=== PATIENT | female | born 1985 | race Caucasian/White ===

== ENCOUNTER → 2020-09-27 08:18 | Outpatient (CLI) | payer OTHER, SELFPAY ==
--- NOTE | ~2020-09-27 | MMUS_ITS ---
EXAMINATION: MM diagnostic preston BI w josi, US breast BI limited HISTORY: Follow-up breast asymmetries TECHNIQUE: Additional 3-D tomosynthesis images of the breasts were performed and synthetic 2-D images were generated. CAD analysis was submitted and interpreted. High resolution bilateral limited breast ultrasound was performed. COMPARISON: None BREAST PARENCHYMAL COMPOSITION: The breasts are heterogenously dense, which may obscure small masses. FINDINGS: MAMMOGRAPHIC FINDINGS: There is focal asymmetry laterally in the right breast on CC view. There are benign breast calcificat ions bilaterally. There are no suspicious masses or architectural distortion in the left breast. ULTRASOUND: Limited right breast ultrasound: There are multiple cysts in the right breast including a 1.2 cm cyst at 9:00 near the areola. At 10:00, 12 cm from the nipple there is a oval circumscribed hypoechoic ma ss with internal echoes measuring 9 x 9 x 6 mm with posterior acoustic enhancement. Parallel orientat ion. No internal vascularity. Limited left breast ultrasound: The areola there is a 6 mm cyst. No suspicious masses to suggest malignancy. No abnormality identifie d in the area of palpable concern. IMPRESSION: 1. Probable benign complicated cyst of the right breast at 10:00, 12 cm from the nipple measuring 9 m m. 2. Recommend 6 month follow-up right breast ultrasound. BI-RADS category 3, probably benign findings. Reviewed, dictated and finalized at location A. SPECIALIST IMPRESSION: 1. Probable benign complicated cyst of the right breast at 10:00, 12 cm from th e nipple measuring 9 mm. 2. Recommend 6 month follow-up right breast ultrasound. BI-RADS category 3, probably benign findings.
== END ==
PROVIDERS: Visit Provider Obstetrics & Gynecology
DX: N63.20 Unspecified lump in the left breast, unspecified quadrant (principal)
CPT/HCPCS: 76642; 77062; 77066; G0279

== ENCOUNTER → 2021-06-15 09:28 | Outpatient (CLI) | payer OTHER, SELFPAY ==
--- NOTE | ~2021-06-15 | US_ITS ---
US breast RT limited 06/15/2021 10:04 Indication: Follow-up right breast masses Procedure: High-resolution Limited ultrasound of the right breast Comparison: 09/27/2020 Findings: There are multiple simple cysts of the right breast as 9 and 10:00. No suspicious masses to suggest malignancy. Impression: 1: No sonographic evidence for malignancy in the right breast. Benign cysts. Routine yearly screening mammogram and regular clinical breast examination are recommended. BI-RADS CATEGORY 2 - BENIGN FINDINGS Reviewed, dictated and finalized at location A. Impression: 1: No sonographic evidence for malignancy in the right breast. Benign cysts. Routine yearly screening mammogram and regular clinical breast examination are recommended. BI-RADS CATEGORY 2 - BENIGN FINDINGS
== END ==
PROVIDERS: PCP Family Medicine; Visit Provider Obstetrics & Gynecology
DX: R92.8 Other abnormal and inconclusive findings on diagnostic imaging of breast (principal)
CPT/HCPCS: 76642

== ENCOUNTER → 2021-10-12 12:48 | Outpatient (CLI) | payer OTHER, SELFPAY ==
--- NOTE | ~2021-10-12 | XR_ITS ---
EXAMINATION: XR ankle LT min 3V DATE: 10/12/2021 13:17 INDICATION: Left ankle pain. Injury. TECHNIQUE: 4 views of left ankle were obtained. COMPARISON: None. FINDINGS: Bone alignment is normal. No fracture. Joint spaces are well maintained. There are enthesop hytes at the posterior and plantar aspects of calcaneal tuberosity. Ankle soft tissue swelling is not ed, left worse than right. IMPRESSION: 1. No fracture. Reviewed, dictated and finalized at location A. TESTING IMPRESSION: 1. No fracture.
== END ==
PROVIDERS: PCP Family Medicine; Visit Provider Physician Assistant
DX: M25.572 Pain in left ankle and joints of left foot (principal); M79.89 Other specified soft tissue disorders
CPT/HCPCS: 73610

== ENCOUNTER 2023-05-09 08:04 | Emergency (ER) | payer OTHER, SELFPAY ==
--- NOTE | 2023-05-09 08:10 | ED.URI ---
HPI - URI/Sore Throat General Chief Complaint: Upper Respiratory Infection Stated Complaint: sore throat; chills Time Seen by Provider: 05/09/23 08:11 Source: patient and RN notes reviewed History of Present Illness HPI Narrative: Patient is a 38-year-old female presents to urgent care with complaints of chills and sore throat. Patient states that it started a couple days ago. Denies any ill exposures. Denies any other upper respiratory complaints. Patient denies fever, nausea or vomiting. States that she has been taking Advil. No other acute complaints. No acute distress noted. Patient aware of the plan of care. Some parts of this dictation were generated by voice recognition software and may contain typographical and/or grammatical inaccuracies. Related Data Home Medications Medication Instructions Recorded Confirmed levonorgestrel 21 mcg/24 hours (8 1 device intrauterine ONCE 11/17/22 11/17/22 yrs) 52 mg intrauterine device (Mirena) Allergies Allergy/AdvReac Type Severity Reaction Status Date / Time No Known Allergies Allergy Mild Verified 05/09/23 08:21 Review of Systems Review of Systems: CONSTITUTIONAL: Reports of chills EYES: Denies visual changes, redness, or discharge. ENT: Denies rhinorrhea, congestion, otalgia. Reports of sore throat CARDIOVASCULAR: Denies chest pain, palpitations, or edema. RESPIRATORY: Denies cough or dyspnea. GASTROINTESTINAL: Denies abdominal pain, nausea, vomiting, or diarrhea. GENITOURINARY: Denies dysuria or hematuria. SKIN: Denies rash or itching. MUSCULOSKELETAL: Denies back pain, joint pain, or myalgia. NEUROLOGIC: Denies headache, numbness, or weakness. All other systems reviewed are negative, except as documented in HPI. [facility] Social History Social History Smoking status: Never smoker Alcohol intake: current Drinks per week: 6 Substance use: never Lack of Transportation: No Lack of Food: Never True Current Housing: I Have Housing Concerned About Future Housing: No Difficulty Paying Gas/Electric Bills: No Difficulty Paying for Meds: No Currently Unemployed: No Education: Associate Degree Difficulty w/ Childcare or Family Care: No Comments At the time of my signature, I reviewed and agree with the nursing past medical, surgical, social, and family history. There is no relevant family history pertinent to the patient complaint. Exam Narrative: GENERAL: This is a well-nourished, well-developed patient, in no apparent distress. HEAD: normocephalic, atraumatic. EYES: PERRL. Sclera clear/white. Vision is grossly intact. EARS: External ears normal, auditory canals clear and without drainage, TMs normal without perforation. Hearing grossly intact. NOSE: External nose normal with no obvious nasal discharge, nares without redness, no rhinorrhea. THROAT: Mucous membranes moist, mild postnasal drainage NECK: Neck supple, non-tender without lymphadenopathy CARDIOVASCULAR: Regular rate and rhythm RESPIRATORY: Clear to auscultation. Breath sounds equal bilaterally. No wheezes, rales, or rhonchi. SKIN: warm, intact with no suspicious lesions or rash, good texture and turgor. NEURO: awake, alert, and oriented to person, place and time. There were no obvious focal neurologic abnormalities. EXTREMITIES: No clubbing, cyanosis, or edema. Course Course Level of Care: Express Care Visit Vital Signs Vital signs: Vital Signs Temperature 99.1 F 05/09/23 08:17 Pulse Rate 103 H 05/09/23 08:17 Respiratory Rate 16 05/09/23 08:17 Blood Pressure 124/78 05/09/23 08:17 Pulse Oximetry 97 05/09/23 08:17 Temperature 99.1 F 05/09/23 08:17 Pulse Rate 103 H 05/09/23 08:17 Respiratory Rate 16 05/09/23 08:17 Blood Pressure 124/78 05/09/23 08:17 Pulse Oximetry 97 05/09/23 08:17 Reviewed MDM - URI/Sore Throat MDM Narrative Medical decision making narrative:
[2023-05-09 08:17] VITALS: BP 124/78; PULSE 103; RESP 16; TEMP 37.3; O2SAT 97
== END 2023-05-09 08:44 | disposition home or self-care (01) ==
PROVIDERS: Emergency Provider Nurse Practitioner Family; PCP Family Medicine
DX: J02.0 Streptococcal pharyngitis (principal)
CPT/HCPCS: 87880; 99213; G0463